=== PATIENT | female | born 1975 | race Caucasian/White ===

== ENCOUNTER → 2017-07-09 | Outpatient (CLI) | payer MEDICAID ==
[~2017-07-09] MED LIST: ALPRazolam 1MG TABLET ONE
== END | disposition home or self-care (01) ==
LOC: RAD 09:45
PROVIDERS: ATTEND Internal Medicine
DX: R44.3 Hallucinations, unspecified (principal); R51 Headache
CPT/HCPCS: 70551

== ENCOUNTER 2020-09-17 18:25 | Emergency (ER) | payer OTHER ==
[~2020-09-17] VITALS: Ht 160 cm; Wt 58.6 kg
--- NOTE | 2020-09-17 18:57 | NUR ---
REPORT RECIEVED FROM ROBERT MIRANDA. PT MANDO ANXIOUS IN [place], AT BEDSIDE CALMING PT DOWN. PT ON CONTINUOUS PULSE OX
--- NOTE | 2020-09-17 19:00 | NUR ---
MED REC INCOMPLETE, DUE TO PT ANXIETY
--- NOTE | 2020-09-17 19:14 | NUR ---
PT NO LONGER YELLING AND HITTING HERSELF, RESP EVEN/UNLABORED, AT BEDSIDE. AWAITING ERP EVAL
--- NOTE | 2020-09-17 20:01 | NUR ---
ERP WENT INTO ROOM TO SPEAK WITH PT AND . PT WAS NOT TALKING WITH ERP AND STATES HE WANTS TO TAKE HER HOME AND HAVE HER REST IT OFF. ERP BELIEVES PT MIGHT NEED LABS AND SCAN. PT IS NOT LETTING HIM KNOW IF SHE WANTS TO GO HOME OR NOT. THIS RN WENT TO SPEAK WITH PT AND WOULD NOT TELL ME YES OR NO TO GOING HOME OR GETTING WORK UP. PT STATES "IM NUMB, I HAVE TO USE THE RESTROOM" AND REFUSES TO SPEAK ABOUT OTHER ISSUES AT THIS TIME. PT AMBULATED TO RESTROOM WITH , WILL REASSESS
[2020-09-17 21:09] LABS: BASOPHILS % (AUTO) 1 % (0-1); EOSINOPHILS % (AUTO) 6 % (1-7); LYMPHOCYTES % (AUTO) 31 % (22-44); MEAN CORPUSCULAR HEMOGLOBIN 30.6 pg (27.0-34.8); MEAN CORPUSCULAR HGB CONC 33.9 g/dL (32.4-35.8); MEAN PLATELET VOLUME 10.3 fL (7.4-10.4); MONOCYTES % (AUTO) 9 % (2-9); NEUTROPHILS % (AUTO) 53 % (42-75); PLATELET COUNT 176 x10^3/uL (130-400); RED BLOOD COUNT 4.23 x10^6/uL (3.82-5.3)
[2020-09-17 21:11] LABS: MD NO
[2020-09-17 21:22] LABS: ANION GAP 7 mmol/L (5-15); CALCIUM 8.9 mg/dL (8.5-10.1); CHLORIDE 107 mmol/L (98-107); CREATININE 0.87 mg/dL (0.55-1.02)
[2020-09-17 22:39] LABS: AMPHETAMINE SCREEN, URINE Negative (Negative); BARBITURATE SCREEN, URINE Negative (Negative); BENZODIAZEPINE SCREEN, URINE Positive (Negative); CANNABINOID SCREEN, URINE Negative (Negative); COCAINE SCREEN, URINE Negative (Negative); METHADONE SCREEN, URINE Negative (Negative); OPIATE SCREEN, URINE Negative (Negative)
[2020-09-17] MEDS ORDERED: gabapentin (23:38)
[2020-09-17] MEDS ORDERED: topiramate (23:38)
[2020-09-17] MEDS ORDERED: etodolac (23:39)
[2020-09-17] MEDS ORDERED: DIVA500T4 PO (23:39)
[2020-09-17] MEDS ORDERED: DIVA250T PO (23:39)
[2020-09-17] MEDS ORDERED: RIZA10TA5 PO (23:41)
[2020-09-17] MEDS ORDERED: GABA600T7 PO (23:41)
[2020-09-17] MEDS ORDERED: HYDROCHLOROTH12.5 MG PO (23:42)
--- NOTE | 2020-09-17 23:54 | NUR ---
SPOKE WITH TELE PSYCH DOC, PT IS VERBAL, WAS ACCEPTING OF ALL TESTS, AND WANTED THE TELE PSYCH CONSULT. FRIEND AT BEDSIDE AT THIS TIME
[2020-09-18] MEDS ORDERED: RIZATRIPTAN 10MG TABLET PO PRN (00:30)
[2020-09-18 00:33] VITALS: BP 90/53
== END 2020-09-18 01:14 | disposition home or self-care (01) ==
LOC: ED 22:57
DX: F30.9 Manic episode, unspecified (principal); G43.909 Migraine, unspecified, not intractable, without status migrainosus; Z87.891 Personal history of nicotine dependence
CPT/HCPCS: 36415; 70450; 80048; 80307; 80320; 84443; 85025; 99284; G0480

== ENCOUNTER 2020-10-17 12:40 | Outpatient (CLI) | payer OTHER ==
[~2020-10-17 12:40] MED LIST changes: +ALPR1TAB2 PO; -ALPRazolam 1MG TABLET ONE; +DIVA250T PO; +DIVA500T4 PO; +GABA600T7 PO; +HYDROCHLOROTH12.5 MG PO; +RIZA10TA5 PO; +etodolac; +gabapentin; +topiramate
== END 2020-10-17 23:59 | disposition home or self-care (01) ==
LOC: CARD 12:40
PROVIDERS: ATTEND Registered Nurse
DX: R41.3 Other amnesia (principal)
CPT/HCPCS: 95819